=== PATIENT | male | born 1965 | race Caucasian/White ===

== ENCOUNTER 2017-10-19 22:27 | Emergency (ER) | payer SELFPAY ==
[~2017-10-19] VITALS: Ht 182.9 cm; Wt 86.0 kg
[2017-10-19 22:35] VITALS: BP 136/66
== END 2017-10-20 | disposition left against medical advice (07) ==
LOC: ER 22:43
DX: Z53.21 Procedure and treatment not carried out due to patient leaving prior to being seen by health care provider (principal)